=== PATIENT | male | born 1965 | race Caucasian/White ===

== ENCOUNTER → 2020-08-09 | Outpatient (CLI) | payer BC, OTHER | LOC: LAB 09:30 | PROVIDERS: ATTEND Orthopaedic Surgery | DX: Z01.812 Encounter for preprocedural laboratory examination (principal); Z20.828 Contact with and (suspected) exposure to other viral communicable diseases ==

== ENCOUNTER 2020-08-14 07:40 | Day surgery (SDC) | payer BC, OTHER ==
[2020-08-09 10:40] LABS: URINE BILIRUBIN NEGATIVE (Negative); URINE BLOOD NEGATIVE (Negative); URINE CLARITY CLEAR; URINE COLOR YELLOW; URINE GLUCOSE-RANDOM* NEGATIVE (Negative); URINE KETONES NEGATIVE (Negative); URINE LEUKOCYTES-REFLEX NEGATIVE (Negative); URINE NITRITE-REFLEX NEGATIVE (Negative); URINE PROTEIN (DIPSTICK) 1+ (Negative); URINE SPECIFIC GRAVITY >= 1.030 (1.005-1.035); URINE UROBILINOGEN 0.2 E.U./dl (0.2-1.0)
[2020-08-09 10:45] LABS: HEMATOCRIT 47.6 % (42.0-52.0); HEMOGLOBIN 16.1 gm/dL (14.0-18.0); MCH 31.2 pg (26.0-34.0); MCHC 33.8 g/dL (28.0-37.0); MCV 92.4 fL (80.0-100.0); RBC 5.16 mil/uL (4.50-6.00); RDW 15.8 % (10.5-14.5)
[2020-08-09 10:50] LABS: ALBUMIN 4.5 g/dL (3.4-5.0); CALCIUM 9.4 mg/dL (8.5-10.1); CREATININE 1.3 mg/dL (0.7-1.3); POTASSIUM 4.5 mmol/L (3.5-5.1)
[2020-08-09 10:51] LABS: CASTS None Seen /LPF (None Seen); CRYSTALS None Seen /LPF (None Seen); SQUAMOUS 0-3 Few /LPF (0-3)
[2020-08-09 10:52] LABS: BACTERIA-REFLEX 1-9 Few /HPF (None Seen); URINE RBC 0-2 Rare /HPF (0-2); URINE WBC-REFLEX None Seen /HPF (0-5)
[2020-08-09 10:55] LABS: PROTIME 9.3 Seconds (9.3-11.4)
[~2020-08-14] VITALS: Ht 175.3 cm; Wt 116.6 kg
[2020-08-14 08:58] VITALS: BP 168/109
--- NOTE | 2020-08-14 14:03 | O ---
[facility] [place] [address] OPERATIVE REPORT Name: HERMELINDA MARQUEZ Room #: 436-P [facility]..#: [id number] Admission: 08/14/20 Attend Phys: Varun Mckay MD Discharge: Date of : 63 Report #: [id number] THIS REPORT FOR: cc: Jun Delgado David J. DO Abraham,Varun Yap MD ~ CC: Jun Mckay DATE OF SERVICE: 08/14/2020 PREOPERATIVE DIAGNOSIS: Left hip osteoarthritis. POSTOPERATIVE DIAGNOSIS: Left hip osteoarthritis. PROCEDURE: Left total hip arthroplasty. SURGEON: Varun Mckay MD. SPOOL CLEANER: Mehreen Pino PA-C. INDICATIONS FOR SPOOL CLEANER: Throughout the case, extensive retraction and manipulation of the hip including dislocation and reduction was required. This was afforded to me by my machine assistant. ANESTHESIA: General. IMPLANTS: [employer] size 17 high offset Synergy press fit stem, a size 40 -4 Oxinium head, a size 58 R3 acetabular cup with one Accord cerclage cable for prophylactic femoral fixation. ESTIMATED BLOOD LOSS: 100 mL COMPLICATIONS: None. SPECIMENS: None. CONDITION UPON LEAVING THE OPERATING ROOM: Stable. INDICATIONS FOR PROCEDURE: The patient is a 55-year-old gentleman with severe left hip osteoarthritis. He had failed conservative measures for this and after discussion with him, he elected for left total hip arthroplasty. DESCRIPTION OF PROCEDURE: Risks, benefits, alternatives, complications were discussed in detail with the patient including but not limited to risk of anesthesia, risk of damage to nerves, arteries, blood vessels, risk for [facility] [address] [place] [address] OPERATIVE REPORT Name: HERMELINDA MARQUEZ Room #: 436-P [facility]#: [id number] Admission: 08/14/20 Attend Phys: Varun Mckay MD Discharge: Date of : 63 Report #: [id number] infection, bleeding, risk for continued hip pain, leg length discrepancy, instability and need for reoperation. Informed consent was obtained from the patient. Left hip was appropriately marked in the preoperative holding area. IV clindamycin was given for preoperative antibiotics. He was brought to the operating room and placed in supine position on operating room table. General anesthesia was induced without complication. He was then placed in the right lateral decubitus position with left hip uppermost. Left hip and lower extremity were prepped and draped in normal sterile fashion. Timeout was performed properly identifying the patient and procedure as well as the instrumentation and implants. All in the operating room were in agreement. Standard posterior approach to the hip was made with 10 blade through the skin. Dissection was taken down to fascia with Bovie cautery and Rodríguez elevator was used to clean off the fascia. Fresh 10 blade was used to make a fascial incision. This was taken proximally and distally with curved Campa scissor. Charnley retractor was placed. Trochanteric bursa was taken down with Bovie cautery. Piriformis tendon was identified, tagged and taken down with Bovie. Short external rotators were also taken down with Bovie cautery. Capsulotomy was made and capsule ends were tagged for later repair. Hip was dislocated and there was extensive osteoarthritic change of the femoral head. Femoral neck cut was made 1 cm proximal to lesser trochanter based on preoperative templating and the femoral head was removed. Deep acetabular retractors were placed. Labrum was removed sharply. Pulvinar was removed with Bovie cautery. Acetabulum was then sequentially reamed up to a size 58, at which point, there was excellent bleeding cancellous bone. A size 57 trial cup was placed, found to have a good fit. Final size 58 R3 acetabular cup was placed and seated. One acetabular screw was placed for backup fixation and polyethylene liner for a size 40 head was placed. Attention was turned to the femur and prophylactic cerclage cable was placed around the proximal femur using the cable passer. This was tensioned and tight. The femur was then reamed and broached up to a size 17, at which point, the size 17 broach was stable, was trialed with a high offset neck and a 40+0 head. Hip was reduced, taken through range of motion, found to be stable, found to have equal leg lengths. Hip was dislocated. The broach was removed and final size 17 high offset Synergy press fit stem was placed. This did not seat quite as far as the broach and so we trialled a 40 -4 head. Hip was reduced, taken through range of motion, found to be stable, found to have equal leg lengths. Hip was dislocated one last time and a final size 40 -4 Oxinium head was placed. It was reduced to take through range of motion, found to be stable, found to have equal leg lengths. Hip was thoroughly irrigated with normal saline. Periarticular injection consisting of morphine, ropivacaine, epinephrine and Toradol was placed around the hip joint capsule. A gram of vancomycin was placed deep in the joint. The capsule and piriformis were repaired with 0 FiberWire. Fascia was closed with 0 Vicryl, skin was closed with 2-0 Vicryl, skin staple and a PAT dressing was applied. The patient [address] [address] OPERATIVE REPORT Name: HERMELINDA MARQUEZ Room #: 436-P [facility]..#: [id number] Admission: 08/14/20 Attend Phys: Varun Mckay MD Discharge: Date of : 63 Report #: [id number] tolerated this procedure well and went to the recovery room under care of anesthesia postoperatively. <ELECTRONICALLY SIGNED> By: Varun Mckay MD 08/14/20 1403 [id number] [id number] Varun Mckay MD /nt
--- NOTE | 2020-08-14 14:45 | NUR ---
Pt transferred from [facility] approx 1320. Dressing on lt knee c/d/i. Denies pain. Tolerates diet well. IVF infusing. Pt worked with physical therapy and might discharge same day of surgery. Awaiting orders. Call light within reach. Will continue to monitor.
[2020-08-14] MEDS ORDERED: ASPIR 8181 MG PO (14:52)
[2020-08-14] MEDS ORDERED: MS CONTIN15 MG PO (14:52)
[2020-08-14] MEDS ORDERED: HYDROCODON-ACE1 EAC7 PO (14:52)
[2020-08-14] MEDS ORDERED: ONDANSETRON4 MG/2 M1 PO (14:53)
[2020-08-14] MEDS ORDERED: CLINDAMYCIN HC300 MG PO (14:56)
[2020-08-14 15:55] VITALS: BP 168/109
[2020-08-14 17:08] VITALS: BP 124/86
== END 2020-08-14 17:30 | disposition home or self-care (01) ==
LOC: TBA 07:40 → OR 07:40 → TBA 07:43 → OR 09:31 → 4S 13:18 → OR 16:06
PROVIDERS: ATTEND Orthopaedic Surgery
DX: M16.12 Unilateral primary osteoarthritis, left hip (principal); M25.552 Pain in left hip; Z98.890 Other specified postprocedural states; Z79.899 Other long term (current) drug therapy; D64.9 Anemia, unspecified; Z88.0 Allergy status to penicillin; Z79.82 Long term (current) use of aspirin
CPT/HCPCS: 50010; 50101; 50382; 50414; 51412; 53000; 53078; 53368; 56524; 56528; 56530; 57095; 57103; 57496; 62110; 62900; 70005